=== PATIENT | male | born 1990 | race Caucasian/White ===

== ENCOUNTER 2018-10-09 12:14 | Emergency (ER) | payer SELFPAY ==
[~2018-10-09] VITALS: Ht 162.6 cm; Wt 62.2 kg
[2018-10-09 12:21] VITALS: BP 137/76; PULSE 120; RESP 20; Ht 162.6 cm; Wt 62.2 kg
[2018-10-09] MEDS ORDERED: DIPHTH/TET/ACEL PERTUSS (ADULT) 0.5 ML VIAL IM* ONE (13:30)
[2018-10-09] MEDS ORDERED: LIDOCAINE 1% (MDV) 20 ML INJ SC ONE (14:00)
[2018-10-09] MEDS ORDERED: CEPH-443 PO (14:44)
[2018-10-09] MEDS ORDERED: IBUP800T48 PO (14:44)
--- NOTE | 2018-10-09 15:02 | ERD ---
ER Documentation Chief Complaint Chief Complaint L thumb laceration at work - wrapped- bleed controlled HPI 28-year-old male presenting with laceration to left thumb. Patient works at [employer] and was working with a machine when he caught his thumb in the machine and sustained a laceration. He is right-hand dominant. He states he is unable to extend his left thumb. He does not recall his last tetanus shot. Denies any numbness or tingling. Denies other medical problems. NKDA. Surgical history is appendectomy. Social history denies. ROS All systems reviewed and are negative except as per history of present illness. Medications Home Meds Active Scripts Cephalexin* (Keflex*) 500 Mg Capsule, 500 MG PO QID for 7 Days, CAP Prov:DALIA RENDON PA-C 10/09/18 Ibuprofen* (Motrin*) 800 Mg Tab, 800 MG PO Q6, #30 TAB Prov:DALIA RENDON PA-C 10/09/18 Allergies Allergies: Coded Allergies: No Known Allergy (Unverified , 10/09/18) PMhx/Soc Medical and Surgical Hx: pt denies Medical Hx, pt denies Surgical Hx Hx Alcohol Use: Yes (SOCIAL) Hx Substance Use: Yes (MARIJUANA) Hx Tobacco Use: No FmHx Family History: No diabetes, No coronary disease, No other Physical Exam Vitals Vital Signs Date Temp Pulse Resp B/P (MAP) Pulse Ox O2 O2 Flow FiO2 Time Delivery Rate 10/09/18 97.2 120 20 137/76 98 12:21 (96) Physical Exam GENERAL: The patient is well-appearing, well-nourished, in no acute distress CHEST: Clear to auscultation bilaterally. There are no rales, wheezes or rhonchi. HEART: Regular rate and rhythm. No murmurs, clicks, rubs or gallops. EXTREMITIES: No obvious deformity noted to the left thumb. Patient is unable to extend the left thumb but has normal flexion. Cap refill less than 2 seconds. Compartments soft. Neurovascularly intact with normal sensation. NEUROLOGIC: Sensation grossly intact. Normal speech and gait. Babinski negative. DTR 2+ throughout. SKIN: Laceration to the left thumb approximately 1 cm crescent-shaped. No active bleeding. Results 24 hrs Current Medications Medications Dose Sig/Chase Start Time Status Last (Trade) Ordered Route PRN Stop Time Admin Dose Reason Admin Diphtheria/ 0.5 ml ONCE ONCE 10/09/18 DC 10/09/18 Tetanus/Acell IM* 13:30 13:21 Pertussis 10/09/18 13:31 (Adacel) Lidocaine 20 ml ONCE ONCE 10/09/18 DC (Xylocaine SC 14:00 1% (Mdv) 20 10/09/18 14:01 ml) Procedures/MDM DIAGNOSTIC IMAGING REPORT Patient: HAN MATHIS : 1990 Age: 28 Sex: M MR #: [id number] DOS: 10/09/18 1313 Ordering MD: BALJEET RENDON PA-C Location: [facility] Room/Bed: PROCEDURE: XR thumb CLINICAL INDICATION: Pain TECHNIQUE: AP, oblique and lateral views of the left thumb were obtained. COMPARISON: No prior studies are available for comparison. FINDINGS: The bones of the hand appear intact, with no evidence of fracture, dislocation, or subluxation. The joint spaces are preserved. The bone mineralization is normal. There is soft tissue injury near the head of the first metacarpal. There is no radiopaque foreign body. RPTAT: AA IMPRESSION: Soft tissue injury with no radiopaque foreign body. ER Course: Tetanus given in ED. Thumb spica splint applied in ED. MDM: 28 yr old male complaining of laceration to left thumb. Patient does have a tendon injury of the extensor tendon of the left thumb. Neurovascularly intact. No bony injuries. Patient is updated on tetanus shot in ED. Patient is told symptoms change or worsen to return immediately to the ER. Patient is told to follow-up with primary care. All questions answered at discharge Departure Diagnosis: Primary Impression: Tendon injury Additional Impression: Laceration Condition: Stable Patient Instructions: Laceration, Hand, Tendon Rupture, Finger Referrals: [facility] Additional Instructions: FOLLOW UP WITH YOUR PRIMARY CARE PHYSICIAN TOMORROW.Return to this facility if you are not improving as expected. DALIA RENDON PA-C Oct 09, 2018 15:02
== END 2018-10-09 15:00 | disposition home or self-care (01) ==
LOC: FTE 12:14
DX: S61.012A Laceration without foreign body of left thumb without damage to nail, initial encounter (principal); S66.902A Unspecified injury of unspecified muscle, fascia and tendon at wrist and hand level, left hand, initial encounter; W23.0XXA Caught, crushed, jammed, or pinched between moving objects, initial encounter; Y92.89 Other specified places as the place of occurrence of the external cause; Z23 Encounter for immunization
CPT/HCPCS: 73140; 90471; 90715

== ENCOUNTER 2018-10-11 09:42 | Emergency (ER) | payer SELFPAY ==
[~2018-10-11] VITALS: Wt 61.4 kg
[~2018-10-11 09:42] MED LIST: CEPH-443 PO; IBUP800T48 PO
[2018-10-11 09:44] VITALS: BP 124/81; PULSE 59; RESP 20
--- NOTE | 2018-10-11 13:14 | ERD ---
ER Documentation Chief Complaint Chief Complaint wound tisha lara. thumb HPI 28-year-old male, right-handed presents to the ED for a wound check for his 1 cm crescent-shaped laceration on his left thumb. There was suspicion for a tendon injury as patient is unable to extend his distal tip of the left thumb and has a pending authorization to see a hand surgeon from the Worker's Compensation physician. Denies any fever, chills, increased redness, increased swelling. States that the range of motion has improved. ROS All systems reviewed and are negative except as per history of present illness. Medications Home Meds Active Scripts Cephalexin* (Keflex*) 500 Mg Capsule, 500 MG PO QID for 7 Days, CAP Prov:DALIA RENDON PA-C 10/09/18 Ibuprofen* (Motrin*) 800 Mg Tab, 800 MG PO Q6, #30 TAB Prov:DALIA RENDON PA-C 10/09/18 Allergies Allergies: Coded Allergies: No Known Allergy (Unverified , 10/09/18) PMhx/Soc Medical and Surgical Hx: pt denies Medical Hx, pt denies Surgical Hx Hx Alcohol Use: Yes (SOCIAL) Hx Substance Use: Yes (MARIJUANA) Hx Tobacco Use: No Smoking Status: Never smoker FmHx Family History: No diabetes, No coronary disease Physical Exam Vitals Vital Signs Date Temp Pulse Resp B/P (MAP) Pulse Ox O2 O2 Flow FiO2 Time Delivery Rate 10/11/18 98.2 59 20 124/81 99 09:44 (95) Physical Exam Const: Ysy-sah-shkyjyicp, well-nourished. In no acute distress. Head: Atraumatic, normocephalic Eyes: Normal Conjunctiva without injection ENT: Normal external ear, nose and mouth. Neck: Full range of motion. No meningismus. Resp: Clear to auscultation bilaterally. No wheezing, rhonchi, rales, or crackles. No accessory muscle use. No retractions. Cardio: Regular rate and rhythm, no murmurs Skin: No petechiae or rashes Back: No midline tenderness. No CVA tenderness. Ext: No cyanosis, or edema. Cap refill less than 2 seconds. Distal pulses intact bilaterally. Patient unable to extend distal phalanges of the left thumb. No surrounding erythema, edema of the 5 sutures noted of the laceration site of the base of the left thumb. Patient has full range of motion with flexion. Neur: Awake and alert. Normal gait and coordination. Muscle strength 5/5. Sensation intact bilaterally. Psych: Normal Mood and Affect Procedures/MDM 28-year-old male patient with no significant past medical history presents to ED complaining of a left thumb laceration and is here for a wound check. Patient is afebrile and nontoxic-appearing. She is awaiting authorization to see a hand surgeon for the extensor tendon injury from his work-related injury from the machine. Patient's tetanus is up-to-date. No erythema, edema, purulent discharge noted. Patient has been taking Keflex, instructed patient to take the course of antibiotics. low suspicion for cellulitis, deep space infection, fractures or dislocations. Patient is placed in a new thumb spica distal phalanx of the left thumb. Patient has no snuffbox tenderness. Low suspicion for scaphoid fracture. Splint Assessment: Neurovascularly intact pre and post splint placement with good fit. Patient's extremity symptoms have stabilized while they have been evaluated in the department and are appropriate for outpatient follow up. No evidence of fractures, dislocations, compartment syndrome, neurologic injury, vascular injury, open joint, open fracture, septic arthritis, osteomyelitis, DVT, foreign body, or other emergent conditions. Follow up with primary care physician in 1-2 days. Instructed patient to return to the ED sooner for any worsening symptoms. Patient's questions were answered. Patient is hemodynamically stable. Patient understood and agreed with discharge plan. Patient discharged stable. Disclaimer: Inadvertent spelling and grammatical errors are likely due to EHR/dictation software use and do not reflect on the overall quality of patient care. Also, please note that the electronic time recorded on this note does not necessarily reflect the actual time of the patient encounter. Departure Diagnosis: Primary Impression: Laceration re-check Condition: Stable Patient Instructions: Suture Care, Laceration, Hand Referrals: [facility] YOU HAVE RECEIVED A MEDICAL SCREENING EXAM AND THE RESULTS INDICATE THAT YOU DO NOT HAVE A CONDITION THAT REQUIRES URGENT TREATMENT IN THE EMERGENCY DEPARTMENT. FURTHER EVALUATION AND TREATMENT OF YOUR CONDITION CAN WAIT UNTIL YOU ARE SEEN IN YOUR DOCTORS OFFICE WITHIN THE NEXT 1-2 DAYS. IT IS YOUR RESPONSIBILITY TO MAKE AN APPOINTMENT FOR FOLOW-UP CARE. IF YOU HAVE A PRIMARY DOCTOR --you should call your primary doctor and schedule an appointment IF YOU DO NOT HAVE A PRIMARY DOCTOR YOU CAN CALL OUR PHYSICIAN REFERRAL HOTLINE AT IF YOU CAN NOT AFFORD TO SEE A PHYSICIAN YOU CAN CHOSE FROM THE FOLLOWING [facility] [address] [facility] [address] [facility] [address] [facility] [address] [facility] [address] [facility]. [facility] [address] [facility]. [facility] YOU HAVE RECEIVED A MEDICAL SCREENING EXAM AND THE RESULTS INDICATE THAT YOU DO NOT HAVE A CONDITION THAT REQUIRES URGENT TREATMENT IN THE EMERGENCY DEPARTMENT. FURTHER EVALUATION AND TREATMENT OF YOUR CONDITION CAN WAIT UNTIL YOU ARE SEEN IN YOUR DOCTORS OFFICE WITHIN THE NEXT 1-2 DAYS. IT IS YOUR RESPONSIBILITY TO MAKE AN APPOINTMENT FOR FOLOW-UP CARE. IF YOU HAVE A PRIMARY DOCTOR --you should call your primary doctor and schedule and appointment IF YOU DO NOT HAVE A PRIMARY DOCTOR YOU CAN CALL OUR PHYSICIAN REFERRAL HOTLINE AT . IF YOU CAN NOT AFFORD TO SEE A PHYSICIAN YOU CAN CHOSE FROM THE FOLLOWING [facility]: [facility] [address] [place] [address] [facility] [address] [place] [address] [facility] [address] [place] [address] [facility]/SPECIALT[facility] Urgent Care 7 a.m.- 11 p.m. Every Day of the Week NO APPOINTMENT OR AUTHORIZATION NEEDED SO [facility] Hours: Mon-Fri 9:00 AM - 5:00 PM Additional Instructions: Call your worker's compensation doctor for an appointment during the next 2-3 days for a referral to see a hand surgeon.See the doctor sooner or return here if your condition worsens before your appointment time. DEREK GARZA PA-C Oct 11, 2018 13:14
== END 2018-10-11 13:40 | disposition home or self-care (01) ==
LOC: FTE 09:42
DX: S61.012D Laceration without foreign body of left thumb without damage to nail, subsequent encounter (principal); X58.XXXD Exposure to other specified factors, subsequent encounter; Z48.01 Encounter for change or removal of surgical wound dressing